=== PATIENT | male | born 1960 | race Caucasian/White ===

== ENCOUNTER 2018-09-06 13:47 | Emergency (ER) | payer MEDICAID ==
[~2018-09-06] VITALS: Ht 175.3 cm; Wt 65.9 kg
[2018-09-06] MEDS ORDERED: TETanus/Pertussis (Acell)/Diphther VAC/PF (Tdap-Adult) 0.5ml syringe IM ONE (14:10)
[2018-09-06] MEDS ORDERED: LIDOcaine 1.5% w/epinephrine 1:200,000 5ml ampul IJ ONE (14:10)
[2018-09-06] MEDS ORDERED: LIDOcaine 1% w/epiNEPHrine 1:200,000 30ml vial IJ ONE (14:15)
[2018-09-06] MEDS ORDERED: AMOX-422 PO (15:02)
[2018-09-06] MEDS ORDERED: amox tr/potassium clavulanate 875/125mg TAB PO ONE (15:05)
[2018-09-06 15:22] VITALS: BP 111/66
== END 2018-09-06 15:25 | disposition home or self-care (01) ==
LOC: ER 13:48
DX: S02.2XXA Fracture of nasal bones, initial encounter for closed fracture (principal); S01.21XA Laceration without foreign body of nose, initial encounter; S09.90XA Unspecified injury of head, initial encounter; I10 Essential (primary) hypertension; J45.909 Unspecified asthma, uncomplicated; E11.9 Type 2 diabetes mellitus without complications; Z59.0 Homelessness; W22.8XXA Striking against or struck by other objects, initial encounter; Y93.89 Activity, other specified; Y92.89 Other specified places as the place of occurrence of the external cause; Y99.9 Unspecified external cause status
CPT/HCPCS: 12011; 70450; 90715; 99284; J3490

== ENCOUNTER 2019-05-22 07:03 | Inpatient (IN) | payer MEDICAID ==
[2019-05-22] VITALS (17 sets, daily range): BP systolic 95–131; BP diastolic 59–84
[~2019-05-22] VITALS: Ht 175.3 cm; Wt 67.2 kg
--- NOTE | 2019-05-22 07:10 | NUR ---
DR ROD NOTIFIED OF [facility] PHYSICIAN CALL WITH RECENT HX AND LABS YESTERDAY, VERBAL ORDER FOR TYPE AND SCREEN RECEIVED, ORDERED LABS PER PROTOCOL
[2019-05-22 07:38] LABS: BASOPHILS # (AUTO) 0.1 X10'3 (0-0.2); BASOPHILS % (AUTO) 0.9 % (0-1); EOSINOPHILS # (AUTO) 0.1 X10'3 (0-0.9); EOSINOPHILS % (AUTO) 1.4 % (0-6); LYMPHOCYTES # (AUTO) 1.1 X10'3 (1.1-4.8); LYMPHOCYTES % (AUTO) 18.6 % (21-51); MEAN CORPUSCULAR HEMOGLOBIN 18.1 PG (27.0-31.0); MEAN CORPUSCULAR HGB CONC 30.2 g/dL (33.0-36.5); MEAN CORPUSCULAR VOLUME 59.9 FL (78-98); MEAN PLATELET VOLUME 8.3 FL (7.4-10.4); MONOCYTES # (AUTO) 0.5 X10'3 (0-0.9); MONOCYTES % (AUTO) 8.4 % (2-12); NEUTROPHILS # (AUTO) 4.3 X10'3 (1.8-7.7); NEUTROPHILS % (AUTO) 70.7 % (42-75); PLATELET COUNT 359 X10'3 (140-440); RED BLOOD COUNT 3.65 X10'6 (4.70-6.10); RED CELL DISTRIBUTION WIDTH 20.5 % (11.5-14.5); WHITE BLOOD COUNT 6.1 X10'3 (4.5-11.0)
[2019-05-22 07:42] LABS: HEMATOCRIT 21.8 % (42.0-52.0); HEMOGLOBIN 6.6 g/dl (14.0-17.9)
[2019-05-22 07:43] LABS: CLARITY,URINE SLIGHTLY CLOUDY (Clear); COLOR,URINE YELLOW (Yellow); GLUCOSE, URINE NEGATIVE (Neg); KETONES,URINE TRACE mg/dl (Neg); LEUKOCYTE ESTERASE ,URINE NEGATIVE (Neg); NITRITES, URINE NEGATIVE (Neg); OCCULT BLOOD,URINE NEGATIVE (Neg); PROTEIN,URINE 30 mg/dl (Neg); UA COLLECTION TYPE CLN CATCH MIDSTREAM
[2019-05-22 07:55] LABS: ALANINE AMINOTRANSFERASE 18 U/L (12-78); ALBUMIN 3.2 G/DL (3.4-5.0); ALBUMIN/GLOBULIN RATIO 0.7 (1.1-1.5); ALKALINE PHOSPHATASE 66 IU/L (46-116); ANION GAP 8 (8-16); ASPARTATE AMINO TRANSFERASE 17 U/L (10-37); BILIRUBIN,TOTAL 0.6 MG/DL (0.1-1.0); BLOOD UREA NITROGEN 18 MG/DL (7-18); BUN/CREATININE RATIO 17.3 (5.4-32.0); CALCIUM 8.4 MG/DL (8.5-10.1); CHLORIDE 101 MMOL/L (99-107); CREATININE 1.04 MG/DL (0.60-1.10); GLUCOSE 94 MG/DL (70-104); LIPASE 131 U/L (73-393); SODIUM 140 MMOL/L (135-145); TOTAL CARBON DIOXIDE 31.1 MMOL/L (24-32); TOTAL PROTEIN 7.5 G/DL (6.4-8.2); eGFR 74 ML/MIN
[2019-05-22 07:56] LABS: POTASSIUM 2.3 MMOL/L (3.5-5.1)
[2019-05-22 07:57] LABS: BACTERIA,URINE NONE SEEN /HPF (Neg); HYALINE CASTS 0-3 /LPF (NEGATIVE); MUCUS STRANDS MANY /LPF (Neg); RBC,URINE 0-2 /HPF (0-2); SQUAMOUS EPITHELIAL CELL,UR MODERATE /LPF (FEW)
[2019-05-22] MEDS ORDERED: potassium Cl 10 mEq/100mL bag IV ONE (08:00)
--- NOTE | 2019-05-22 08:23 | NUR ---
blood consent signed by Dr. Emmanuel and patient,[place] [place]who will call when blood is ready.
[2019-05-22] MEDS ORDERED: potassium Cl 10 mEq/100mL bag IV SCH (08:30)
[2019-05-22] MEDS: potassium Cl 10 mEq/100mL bag IV SCH ×4 (08:36→12:13)
[2019-05-22 08:48] LABS: ANISOCYTOSIS 3+; ELLIPTOCYTES FEW; HYPOCHROMASIA 3+; MICROCYTOSIS 3+; PLATELET ESTIMATE NORMAL; POLYCHROMASIA 1+; STOMATOCYTES 1+; TEAR DROP CELLS FEW
[2019-05-22] MEDS ORDERED: iohexol 300mg/ml 100ml inj. ONE (09:51)
[2019-05-22] MEDS ORDERED: mag hydrox/Alum hydrox/simeth 30ml oral suspension PO PRN (11:30)
[2019-05-22] MEDS ORDERED: ondansetron/PF 4mg/2ml inj IV PRN (11:30)
[2019-05-22] MEDS ORDERED: potassium Cl 20 mEq SR tablet PO PRN ×2 (11:30)
[2019-05-22] MEDS ORDERED: magnesium 4gm in 100ml NS 100 ML IV PRN (11:30)
[2019-05-22] MEDS ORDERED: potassium CL 10mEq/100ml bag 100 ML IV PRN (11:30)
[2019-05-22] MEDS ORDERED: magnesium Cl slow-release 64mg tablet PO PRN (11:30)
[2019-05-22] MEDS ORDERED: magnesium hydroxide 30ml (MOM) UD suspension PO PRN (11:30)
[2019-05-22] MEDS ORDERED: magnesium 2GM in 50ml NS 50 ML IV PRN (11:30)
[2019-05-22] MEDS ORDERED: acetaminophen 325mg tablet PO PRN ×2 (11:30)
[2019-05-22] MEDS ORDERED: ESOMEPRAZOLE 40 MG VIAL IV SCH (11:40)
[2019-05-22] MEDS ORDERED: NO HOME MEDS (12:02)
--- NOTE | 2019-05-22 12:28 | NUR ---
Received report from PATY Terrazas. Awaiting patient arrival to room 355a.
[2019-05-22 12:53] LABS: MAGNESIUM 2.3 MG/DL (1.5-2.4)
--- NOTE | 2019-05-22 12:54 | NUR ---
Received patient to room 355a. Patient is alert and oriented and in no apparent distress. Patient denies any pain or discomfort. Patient had just completed blood transfusion during transport per transferring RN. VSS. Patient oriented to room and call light. Call light within reach, bed is low and locked.
[2019-05-22 13:16] LABS: OCCULT BLOOD STOOL POSITIVE (Neg)
--- NOTE | 2019-05-22 13:21 | NUR ---
Malnutrition consult: Per H&P pt reports persistent vomiting with no nausea that is exacerbated with PO intake. Pt also reports low PO intake r/t not being able to eat or swallow things. No ST consult at this time d/t pt NPO for EGD. Per H&P pt with stomach mass however PMH documents it as an esophageal mass. Patient's current wt is stable with documented weight in September 2018. Per H&P pt with no edema. Pending physical assessment. Currently not enough information to fully assess for malnutrition at this time. Will f/u tomorrow. Addendum: 05/22/19 at [address] Amended: Links added.
[2019-05-22] MEDS: magnesium 2GM in 50ml NS 50 ML IV SCH ×2 (13:28→16:00)
[2019-05-22] MEDS: potassium CL 20mEq in D5-1/2NS 1,000 ML IV SCH ×2 (13:28→21:28)
--- NOTE | 2019-05-22 13:53 | NUR ---
patient down to GI lab.
[2019-05-22] MEDS ORDERED: fentaNYL/PF 50MCG/1 ML 2ML syringe ONE (14:39)
[2019-05-22] MEDS ORDERED: LIDOcaine Viscous 15ml cup ONE (14:40)
[2019-05-22] MEDS ORDERED: MIDAZolam 5mg/5ml vial ONE (14:40)
--- NOTE | 2019-05-22 15:56 | NUR ---
patient returned to room 355a.
[2019-05-22] MEDS ORDERED: ESOMEPRAZOLE 40 MG VIAL IV ONE (16:05)
--- NOTE | 2019-05-22 16:36 | NUR ---
angioseal to right groin cdi. groin soft, no hematoma noted. educated patient importance of lying flat on back for x6 hours and not lifting head more than 10 degrees. Addendum: 05/22/19 at 1824 by Imelda Bullock RN WRONG PATIENT CHART.
[2019-05-22] MEDS ORDERED: fluconazole-Diflucan 100MG/NS 50 ML IV SCH (17:00)
[2019-05-22] MEDS: fluconazole-Diflucan 100MG/NS 50 ML IV SCH (17:29)
--- NOTE | 2019-05-22 18:24 | NUR ---
Problems reprioritized. Patient report given, questions answered & plan of care reviewed with PATY VALENCIA.
--- NOTE | 2019-05-22 18:50 | NUR ---
Patient in room JOHN 355. I have received report from Imelda NEWMAN and had the opportunity to ask questions and assume patient care. Patient finishing clears dinner, will continue to monitor.
--- NOTE | 2019-05-22 18:55 | NUR ---
Problems reprioritized. Patient report given, questions answered & plan of care reviewed with PATY PUTNAM.
[2019-05-23] VITALS (13 sets, daily range): BP systolic 96–114; BP diastolic 61–72
[2019-05-23] MEDS ORDERED: temazepam 15mg capsule PO ONE (02:30)
[2019-05-23] MEDS: potassium CL 20mEq in D5-1/2NS 1,000 ML IV SCH ×3 (02:31→23:48)
[2019-05-23] MEDS ORDERED: morphine 2 MG/ML inj. syringe IV PRN (04:45)
[2019-05-23 06:05] LABS: BASOPHILS # (AUTO) 0.1 X10'3 (0-0.2); BASOPHILS % (AUTO) 1.4 % (0-1); EOSINOPHILS # (AUTO) 0.2 X10'3 (0-0.9); EOSINOPHILS % (AUTO) 2.9 % (0-6); LYMPHOCYTES % (AUTO) 18.3 % (21-51); MEAN CORPUSCULAR HEMOGLOBIN 18.9 PG (27.0-31.0); MEAN CORPUSCULAR HGB CONC 29.9 g/dL (33.0-36.5); MEAN CORPUSCULAR VOLUME 63.3 FL (78-98); MEAN PLATELET VOLUME 8.3 FL (7.4-10.4); MONOCYTES # (AUTO) 0.5 X10'3 (0-0.9); NEUTROPHILS # (AUTO) 3.6 X10'3 (1.8-7.7); NEUTROPHILS % (AUTO) 68.4 % (42-75); PLATELET COUNT 264 X10'3 (140-440); RED BLOOD COUNT 3.26 X10'6 (4.70-6.10); RED CELL DISTRIBUTION WIDTH 22.9 % (11.5-14.5); WHITE BLOOD COUNT 5.3 X10'3 (4.5-11.0)
[2019-05-23 06:17] LABS: ALBUMIN 2.5 G/DL (3.4-5.0); ANION GAP 6 (8-16); BLOOD UREA NITROGEN 10 MG/DL (7-18); BUN/CREATININE RATIO 13.5 (5.4-32.0); CALCIUM 7.7 MG/DL (8.5-10.1); CHLORIDE 106 MMOL/L (99-107); CREATININE 0.74 MG/DL (0.60-1.10); GLUCOSE 92 MG/DL (70-104); MAGNESIUM 2.3 MG/DL (1.5-2.4); SODIUM 138 MMOL/L (135-145); TOTAL CARBON DIOXIDE 25.7 MMOL/L (24-32); eGFR > 90 ML/MIN
[2019-05-23 06:23] LABS: HEMATOCRIT 20.7 % (42.0-52.0); HEMOGLOBIN 6.2 g/dl (14.0-17.9)
[2019-05-23 06:25] LABS: POTASSIUM 2.8 MMOL/L (3.5-5.1)
[2019-05-23] MEDS ORDERED: POTASSIUM BICARB 20meq eff tab 20 MEQ TABLET.EFF PO PRN ×2 (06:43→06:44)
[2019-05-23] MEDS: fluconazole-Diflucan 100MG/NS 50 ML IV SCH (06:57)
[2019-05-23] MEDS: ESOMEPRAZOLE 40 MG VIAL IV SCH (07:00)
--- NOTE | 2019-05-23 07:03 | NUR ---
Problems reprioritized. Patient report given, questions answered & plan of care reviewed with Kirstin NEWMAN.
[2019-05-23 07:13] LABS: ANISOCYTOSIS 3+; HYPOCHROMASIA 2+; MICROCYTOSIS 2+; PLATELET ESTIMATE NORMAL
[2019-05-23 07:14] LABS: POIKILOCYTOSIS FEW; POLYCHROMASIA 1+; TARGET CELLS FEW; TEAR DROP CELLS FEW
[2019-05-23] MEDS: potassium CL 10mEq/100ml bag 100 ML IV PRN ×7 (08:05→18:08)
[2019-05-23] MEDS: K and/or MAG REPLACEMENT MC SCH (08:12)
--- NOTE | 2019-05-23 12:39 | NUR ---
F/u for malnutrition consult: Pt s/p EGD with with findings of distal esophageal stricture with ulceration with biopsies taken from mass, esophageal foreign body which could have been impairing ability to swallow which was endoscopically removed, and white exudate of the distal esophagus consistent with Soraya. EGD reports indicate suboptimal exam with failure to inspect the stomach and duodenum. Patient previously on clear liquid diet with 50-75% PO intake however diet was just advanced to full liquid, pending PO intake. Pt currently lacks a minimum of two criteria for malnutrition with stable wt, appropriate BMI, no edema or significant decrease in muscle strength. Will continue to follow and monitor need for ONS. Addendum: 05/23/19 at [address] Amended: Links added.
[2019-05-23] MEDS ORDERED: iohexol 300mg/ml 100ml inj. ONE (14:52)
--- NOTE | 2019-05-23 16:03 | NUR ---
Per RN over the phone MD requesting calorie count on patient. RD states pt is swallowing better s/p EGD however requires drinking slowly. Calorie count papers received for lunch today indicate pt with 220 kcal intake x 1 meal. Noted that Ensure Enlive has been ordered TID. Will f/u tomorrow for additional calorie count information. Recommendations: 1) Advance to regular diet as medically indicated 2) Ensure Enlive TID 3) Wt per rx Addendum: 05/23/19 at [address] Amended: Links added.
--- NOTE | 2019-05-23 16:07 | NUR ---
RN's : Fax calorie count down to dietitian at [phone] after each meal. They will count calories and put in in a daily dietitian note.
[2019-05-23 17:35] LABS: HEMATOCRIT 25.5 % (42.0-52.0); MEAN CORPUSCULAR HEMOGLOBIN 21.1 PG (27.0-31.0); MEAN CORPUSCULAR HGB CONC 31.3 g/dL (33.0-36.5); MEAN CORPUSCULAR VOLUME 67.5 FL (78-98); MEAN PLATELET VOLUME 8.4 FL (7.4-10.4); PLATELET COUNT 241 X10'3 (140-440); RED BLOOD COUNT 3.78 X10'6 (4.70-6.10); RED CELL DISTRIBUTION WIDTH 26.7 % (11.5-14.5); WHITE BLOOD COUNT 5.7 X10'3 (4.5-11.0)
[2019-05-23] MEDS: lactose-reduced food (Ensure Enlive) - 237ml bottle PO SCH (18:24)
--- NOTE | 2019-05-23 18:30 | NUR ---
Patient in room JOHN 355. I have received report from Kirstin NEWMAN and had the opportunity to ask questions and assume patient care. Patient working on dinner, states understanding that he will take his time with eating. Will continue to monitor.
--- NOTE | 2019-05-23 18:38 | NUR ---
Problems reprioritized. Patient report given, questions answered & plan of care reviewed with Khalida NEWMAN.
[2019-05-23] MEDS: temazepam 15mg capsule PO PRN (22:49)
[2019-05-24] VITALS: BP 105/70
[2019-05-24 01:53] LABS: BASOPHILS % (AUTO) 0.6 % (0-1); EOSINOPHILS # (AUTO) 0.3 X10'3 (0-0.9); EOSINOPHILS % (AUTO) 4.6 % (0-6); HEMATOCRIT 24.4 % (42.0-52.0); HEMOGLOBIN 7.6 g/dl (14.0-17.9); LYMPHOCYTES % (AUTO) 18.1 % (21-51); MEAN CORPUSCULAR HEMOGLOBIN 20.9 PG (27.0-31.0); MEAN CORPUSCULAR VOLUME 67.5 FL (78-98); MEAN PLATELET VOLUME 8.6 FL (7.4-10.4); MONOCYTES # (AUTO) 0.5 X10'3 (0-0.9); MONOCYTES % (AUTO) 8.4 % (2-12); NEUTROPHILS # (AUTO) 3.8 X10'3 (1.8-7.7); NEUTROPHILS % (AUTO) 68.3 % (42-75); PLATELET COUNT 229 X10'3 (140-440); RED BLOOD COUNT 3.62 X10'6 (4.70-6.10); WHITE BLOOD COUNT 5.5 X10'3 (4.5-11.0)
[2019-05-24 02:02] LABS: ALBUMIN 2.2 G/DL (3.4-5.0); ANION GAP 6 (8-16); BLOOD UREA NITROGEN 4 MG/DL (7-18); CALCIUM 7.7 MG/DL (8.5-10.1); CHLORIDE 108 MMOL/L (99-107); CREATININE 0.67 MG/DL (0.60-1.10); GLUCOSE 94 MG/DL (70-104); MAGNESIUM 1.9 MG/DL (1.5-2.4); SODIUM 140 MMOL/L (135-145); TOTAL CARBON DIOXIDE 25.6 MMOL/L (24-32); eGFR > 90 ML/MIN
--- NOTE | 2019-05-24 06:20 | NUR ---
Patient in room JOHN 355. I have received report from Khalida NEWMAN and had the opportunity to ask questions and assume patient care.
--- NOTE | 2019-05-24 06:53 | NUR ---
Problems reprioritized. Patient report given, questions answered & plan of care reviewed with Brooke NEWMAN. Patient resting eyes closed respirations even.
[2019-05-24 07:05] VITALS: BP 107/76
[2019-05-24] MEDS: K and/or MAG REPLACEMENT MC SCH (08:00)
[2019-05-24] MEDS: fluconazole-Diflucan 100MG/NS 50 ML IV SCH (08:21)
[2019-05-24] MEDS: ESOMEPRAZOLE 40 MG VIAL IV SCH (08:22)
[2019-05-24] MEDS: lactose-reduced food (Ensure Enlive) - 237ml bottle PO SCH ×3 (08:22→18:17)
[2019-05-24] MEDS: potassium CL 20mEq in D5-1/2NS 1,000 ML IV SCH (08:30)
[2019-05-24 09:40] LABS: HEMATOCRIT 27.5 % (42.0-52.0); HEMOGLOBIN 8.3 g/dl (14.0-17.9); MEAN CORPUSCULAR HEMOGLOBIN 20.9 PG (27.0-31.0); MEAN CORPUSCULAR HGB CONC 30.3 g/dL (33.0-36.5); MEAN PLATELET VOLUME 8.9 FL (7.4-10.4); PLATELET COUNT 262 X10'3 (140-440); RED BLOOD COUNT 3.99 X10'6 (4.70-6.10); RED CELL DISTRIBUTION WIDTH 26.5 % (11.5-14.5); WHITE BLOOD COUNT 7.2 X10'3 (4.5-11.0)
[2019-05-24 11:13] VITALS: BP 100/67
--- NOTE | 2019-05-24 15:04 | NUR ---
F/u: Calorie Count day 1 05/23 lunch and dinner 05/24 breakfast. Pt PO 919kcals and 33g protein mainly drinking ensure enlives TID on full liquid diet not meeting needs. 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 LBM 05/21. Will continue to monitor. Per RN over the phone MD requesting calorie count on patient. RD states pt is swallowing better s/p EGD however requires drinking slowly. Calorie count papers received for lunch today indicate pt with 220 kcal intake x 1 meal. Noted that Ensure Enlive has been ordered TID. Will f/u tomorrow for additional calorie count information. Recommendations: 1) Advance to regular diet as medically indicated per CORN CROP SUPERVISOR/MD 2) Ensure Enlive TID 3) Wt per rx Addendum: 05/24/19 at [address] Amended: Links added.
[2019-05-24 18:00] VITALS: BP 120/82
--- NOTE | 2019-05-24 18:44 | NUR ---
Problems reprioritized. Patient report given, questions answered & plan of care reviewed with Gissell NEWMAN.
[2019-05-24 22:12] LABS: HEMOGLOBIN 7.9 g/dl (14.0-17.9); MEAN CORPUSCULAR HEMOGLOBIN 20.9 PG (27.0-31.0); MEAN CORPUSCULAR HGB CONC 30.3 g/dL (33.0-36.5); MEAN CORPUSCULAR VOLUME 68.9 FL (78-98); MEAN PLATELET VOLUME 8.8 FL (7.4-10.4); PLATELET COUNT 251 X10'3 (140-440); RED BLOOD COUNT 3.77 X10'6 (4.70-6.10); RED CELL DISTRIBUTION WIDTH 27.6 % (11.5-14.5); WHITE BLOOD COUNT 6.7 X10'3 (4.5-11.0)
[2019-05-24] MEDS: temazepam 15mg capsule PO PRN (23:24)
[2019-05-25] VITALS: BP 117/69
[2019-05-25 05:25] LABS: BASOPHILS # (AUTO) 0.1 X10'3 (0-0.2); BASOPHILS % (AUTO) 1.1 % (0-1); EOSINOPHILS # (AUTO) 0.2 X10'3 (0-0.9); EOSINOPHILS % (AUTO) 3.5 % (0-6); HEMATOCRIT 25.4 % (42.0-52.0); HEMOGLOBIN 7.8 g/dl (14.0-17.9); LYMPHOCYTES # (AUTO) 1.3 X10'3 (1.1-4.8); LYMPHOCYTES % (AUTO) 23.1 % (21-51); MEAN CORPUSCULAR HEMOGLOBIN 21.1 PG (27.0-31.0); MEAN CORPUSCULAR HGB CONC 30.6 g/dL (33.0-36.5); MEAN PLATELET VOLUME 8.9 FL (7.4-10.4); MONOCYTES # (AUTO) 0.6 X10'3 (0-0.9); NEUTROPHILS # (AUTO) 3.5 X10'3 (1.8-7.7); NEUTROPHILS % (AUTO) 61.3 % (42-75); PLATELET COUNT 255 X10'3 (140-440); RED BLOOD COUNT 3.69 X10'6 (4.70-6.10); RED CELL DISTRIBUTION WIDTH 27.3 % (11.5-14.5); WHITE BLOOD COUNT 5.7 X10'3 (4.5-11.0)
[2019-05-25 05:46] LABS: ALBUMIN 2.2 G/DL (3.4-5.0); ANION GAP 7 (8-16); BLOOD UREA NITROGEN 4 MG/DL (7-18); BUN/CREATININE RATIO 6.1 (5.4-32.0); CALCIUM 8.1 MG/DL (8.5-10.1); CHLORIDE 110 MMOL/L (99-107); CREATININE 0.66 MG/DL (0.60-1.10); GLUCOSE 87 MG/DL (70-104); MAGNESIUM 1.9 MG/DL (1.5-2.4); POTASSIUM 3.9 MMOL/L (3.5-5.1); SODIUM 141 MMOL/L (135-145); eGFR > 90 ML/MIN
--- NOTE | 2019-05-25 06:00 | NUR ---
Patient in room JOHN 355. I have received report from Gissell NEWMAN and had the opportunity to ask questions and assume patient care.
--- NOTE | 2019-05-25 06:05 | NUR ---
Problems reprioritized. Patient report given, questions answered & plan of care reviewed with PATY Cox.
[2019-05-25 07:16] LABS: LARGE PLATELETS FEW; PLATELET ESTIMATE NORMAL
[2019-05-25 07:17] LABS: ANISOCYTOSIS 3+; HYPOCHROMASIA 1+; MICROCYTOSIS 2+; POIKILOCYTOSIS FEW; POLYCHROMASIA 1+
[2019-05-25 07:29] VITALS: BP 114/67
[2019-05-25] MEDS: K and/or MAG REPLACEMENT MC SCH (08:00)
[2019-05-25] MEDS: fluconazole-Diflucan 100MG/NS 50 ML IV SCH (08:20)
[2019-05-25] MEDS: lactose-reduced food (Ensure Enlive) - 237ml bottle PO SCH ×3 (08:21→18:00)
[2019-05-25] MEDS: ESOMEPRAZOLE 40 MG VIAL IV SCH (09:04)
[2019-05-25 11:47] VITALS: BP 100/65
--- NOTE | 2019-05-25 14:42 | NUR ---
Calorie Count: Day 2; Missing pt lunch report 05/24 and will summarize using breakfast and dinner 05/24 w/ breakfast 05/25. In total pt consumed 1291 kcals and 51g protein past 24 hours meeting 77% estimated kcal and 94% estimated protein needs. LBM 05/24 first documented following 4 days constipation. Pt MCV 70 w/ no thyroid hx; RD d/w RN for Fe panel per MD approval given may need supplementation. CLAY PUDDLER recs continue full liquid diet given regurgitation from stricture. Will continue to monitor. Addendum: 05/25/19 at [address] Amended: Links added.
[2019-05-25 16:27] LABS: HEMATOCRIT 25.7 % (42.0-52.0); HEMOGLOBIN 8.1 g/dl (14.0-17.9); MEAN CORPUSCULAR HEMOGLOBIN 21.7 PG (27.0-31.0); MEAN CORPUSCULAR HGB CONC 31.5 g/dL (33.0-36.5); MEAN CORPUSCULAR VOLUME 68.8 FL (78-98); PLATELET COUNT 277 X10'3 (140-440); RED BLOOD COUNT 3.73 X10'6 (4.70-6.10); RED CELL DISTRIBUTION WIDTH 27.9 % (11.5-14.5); WHITE BLOOD COUNT 5.5 X10'3 (4.5-11.0)
--- NOTE | 2019-05-25 18:36 | NUR ---
Problems reprioritized. Patient report given, questions answered & plan of care reviewed with Patti NEWMAN.
--- NOTE | 2019-05-25 18:40 | NUR ---
Patient in room JOHN 355. I have received report from MAXWELL NEWMAN and had the opportunity to ask questions and assume patient care.
[2019-05-25 20:00] VITALS: BP 159/87
[2019-05-25] MEDS: temazepam 15mg capsule PO PRN (22:19)
[2019-05-26] VITALS: BP 115/79
[2019-05-26 05:29] LABS: BASOPHILS % (AUTO) 0.8 % (0-1); EOSINOPHILS # (AUTO) 0.2 X10'3 (0-0.9); EOSINOPHILS % (AUTO) 4.2 % (0-6); HEMATOCRIT 26.6 % (42.0-52.0); HEMOGLOBIN 8.3 g/dl (14.0-17.9); LYMPHOCYTES # (AUTO) 1.1 X10'3 (1.1-4.8); LYMPHOCYTES % (AUTO) 18.9 % (21-51); MEAN CORPUSCULAR HEMOGLOBIN 21.1 PG (27.0-31.0); MEAN CORPUSCULAR HGB CONC 31.1 g/dL (33.0-36.5); MEAN PLATELET VOLUME 8.7 FL (7.4-10.4); MONOCYTES # (AUTO) 0.6 X10'3 (0-0.9); MONOCYTES % (AUTO) 10.5 % (2-12); NEUTROPHILS # (AUTO) 3.7 X10'3 (1.8-7.7); NEUTROPHILS % (AUTO) 65.6 % (42-75); PLATELET COUNT 281 X10'3 (140-440); RED BLOOD COUNT 3.92 X10'6 (4.70-6.10); RED CELL DISTRIBUTION WIDTH 28.3 % (11.5-14.5); WHITE BLOOD COUNT 5.7 X10'3 (4.5-11.0)
[2019-05-26 05:40] LABS: ALBUMIN 2.4 G/DL (3.4-5.0); ANION GAP 9 (8-16); CALCIUM 8.3 MG/DL (8.5-10.1); CHLORIDE 108 MMOL/L (99-107); GLUCOSE 85 MG/DL (70-104); POTASSIUM 3.9 MMOL/L (3.5-5.1); SODIUM 141 MMOL/L (135-145); TOTAL CARBON DIOXIDE 24.4 MMOL/L (24-32); eGFR > 90 ML/MIN
[2019-05-26 05:56] LABS: BLOOD UREA NITROGEN 7 MG/DL (7-18)
[2019-05-26 06:03] LABS: ANISOCYTOSIS 3+; MICROCYTOSIS 2+; PLATELET ESTIMATE NORMAL
[2019-05-26 06:04] LABS: HYPOCHROMASIA 1+; POLYCHROMASIA 1+
[2019-05-26 06:05] LABS: ELLIPTOCYTES FEW; TEAR DROP CELLS FEW
--- NOTE | 2019-05-26 06:30 | NUR ---
Problems reprioritized. Patient report given, questions answered & plan of care reviewed with MARJORIE NEWMAN AND SAVANNA NEWMAN.
--- NOTE | 2019-05-26 06:58 | NUR ---
Patient in room [facility] 355. I have received report from MURDOCK RN and had the opportunity to ask questions and assume patient care.
[2019-05-26 08:00] VITALS: BP 104/73
[2019-05-26] MEDS: K and/or MAG REPLACEMENT MC SCH (08:00)
[2019-05-26] MEDS: lactose-reduced food (Ensure Enlive) - 237ml bottle PO SCH ×3 (08:00→19:40)
[2019-05-26] MEDS: fluconazole-Diflucan 100MG/NS 50 ML IV SCH (08:55)
[2019-05-26] MEDS: ESOMEPRAZOLE 40 MG VIAL IV SCH (08:55)
--- NOTE | 2019-05-26 09:32 | NUR ---
Called [facility] at [phone] no results at this time
[2019-05-26 12:12] VITALS: BP 108/69
--- NOTE | 2019-05-26 14:15 | NUR ---
Calorie count day 3: Calculated intake using lunch and dinner 05/25 and breakfast 05/26. In total pt consumed 727 kcal and 23.7 g protein meeting 43% estimated energy needs and 44% estimated protein needs. Per RN pt requested ONS change from TID to BID with breakfast and dinner, d/w dietary. Calorie count to end at lunch today, RN informed of this and let her know that we can continue the calorie count if MD would like, we would just need a consult indicating the desire to continue the calorie count. Will continue to follow. Addendum: 05/26/19 at [address] Amended: Links added.
[2019-05-26 16:14] LABS: HEMATOCRIT 31.5 % (42.0-52.0); HEMOGLOBIN 9.7 g/dl (14.0-17.9); MEAN CORPUSCULAR HGB CONC 30.8 g/dL (33.0-36.5); MEAN CORPUSCULAR VOLUME 68.3 FL (78-98); MEAN PLATELET VOLUME 8.2 FL (7.4-10.4); PLATELET COUNT 385 X10'3 (140-440); RED BLOOD COUNT 4.61 X10'6 (4.70-6.10); WHITE BLOOD COUNT 10.3 X10'3 (4.5-11.0)
[2019-05-26 18:00] VITALS: BP 108/66
--- NOTE | 2019-05-26 18:37 | NUR ---
Problems reprioritized. Patient report given, questions answered & plan of care reviewed with MURDOCK RN.
--- NOTE | 2019-05-26 18:40 | NUR ---
Patient in room [facility] 355. I have received report from MARJORIE NEWMAN AND SAVANNA NEWMAN and had the opportunity to ask questions and assume patient care.
[2019-05-26] MEDS: temazepam 15mg capsule PO PRN (22:26)
[2019-05-27] VITALS: BP 123/76
[2019-05-27 05:23] LABS: BASOPHILS # (AUTO) 0.1 X10'3 (0-0.2); BASOPHILS % (AUTO) 0.8 % (0-1); EOSINOPHILS # (AUTO) 0.2 X10'3 (0-0.9); EOSINOPHILS % (AUTO) 2.8 % (0-6); HEMATOCRIT 26.5 % (42.0-52.0); HEMOGLOBIN 8.3 g/dl (14.0-17.9); LYMPHOCYTES # (AUTO) 1.4 X10'3 (1.1-4.8); MEAN CORPUSCULAR HEMOGLOBIN 21.4 PG (27.0-31.0); MEAN CORPUSCULAR HGB CONC 31.5 g/dL (33.0-36.5); MEAN CORPUSCULAR VOLUME 68.1 FL (78-98); MEAN PLATELET VOLUME 8.7 FL (7.4-10.4); MONOCYTES # (AUTO) 0.8 X10'3 (0-0.9); MONOCYTES % (AUTO) 10.8 % (2-12); NEUTROPHILS # (AUTO) 4.6 X10'3 (1.8-7.7); NEUTROPHILS % (AUTO) 65.6 % (42-75); PLATELET COUNT 294 X10'3 (140-440); RED BLOOD COUNT 3.88 X10'6 (4.70-6.10); RED CELL DISTRIBUTION WIDTH 29.4 % (11.5-14.5)
[2019-05-27 05:34] LABS: ALBUMIN 2.4 G/DL (3.4-5.0); ANION GAP 8 (8-16); BLOOD UREA NITROGEN 10 MG/DL (7-18); BUN/CREATININE RATIO 14.5 (5.4-32.0); CALCIUM 8.6 MG/DL (8.5-10.1); CHLORIDE 106 MMOL/L (99-107); CREATININE 0.69 MG/DL (0.60-1.10); GLUCOSE 86 MG/DL (70-104); POTASSIUM 4.4 MMOL/L (3.5-5.1); SODIUM 137 MMOL/L (135-145); TOTAL CARBON DIOXIDE 23.2 MMOL/L (24-32); eGFR > 90 ML/MIN
[2019-05-27 06:11] LABS: ANISOCYTOSIS 3+; LARGE PLATELETS FEW; MICROCYTOSIS 2+; PLATELET ESTIMATE NORMAL
[2019-05-27 06:12] LABS: HYPOCHROMASIA 2+
--- NOTE | 2019-05-27 06:30 | NUR ---
Problems reprioritized. Patient report given, questions answered & plan of care reviewed with BRITTANY NEWMAN.
--- NOTE | 2019-05-27 07:00 | NUR ---
Patient in room [facility] 355. I have received report from LINDA MCKEON RN and had the opportunity to ask questions and assume patient care.
[2019-05-27 08:00] VITALS: BP 110/69
[2019-05-27] MEDS: K and/or MAG REPLACEMENT MC SCH (08:00)
[2019-05-27] MEDS: fluconazole-Diflucan 100MG/NS 50 ML IV SCH (08:30)
[2019-05-27] MEDS: ESOMEPRAZOLE 40 MG VIAL IV SCH ×2 (08:30→19:53)
[2019-05-27] MEDS: lactose-reduced food (Ensure Enlive) - 237ml bottle PO SCH ×3 (08:37→14:40)
[2019-05-27 11:20] VITALS: BP 103/68
--- NOTE | 2019-05-27 12:12 | NUR ---
F/u: Pt PO 75-100% full liquids but takes 3-4 hours to eat per RN. AI d/w RN regarding potential for PEG in order to meet nutrition needs. Per RN; MD is aware and pt to d/c tomorrow likely to f/u as outpatient. Addendum: 05/27/19 at [address] Amended: Links added.
[2019-05-27 15:57] LABS: HEMATOCRIT 27.7 % (42.0-52.0); HEMOGLOBIN 8.6 g/dl (14.0-17.9); MEAN CORPUSCULAR HEMOGLOBIN 21.5 PG (27.0-31.0); MEAN CORPUSCULAR HGB CONC 31.2 g/dL (33.0-36.5); MEAN CORPUSCULAR VOLUME 68.8 FL (78-98); MEAN PLATELET VOLUME 8.4 FL (7.4-10.4); PLATELET COUNT 322 X10'3 (140-440); RED BLOOD COUNT 4.02 X10'6 (4.70-6.10); RED CELL DISTRIBUTION WIDTH 29.6 % (11.5-14.5); WHITE BLOOD COUNT 7.1 X10'3 (4.5-11.0)
[2019-05-27 18:00] VITALS: BP 110/71
--- NOTE | 2019-05-27 18:46 | NUR ---
Patient in room [facility] 355. I have received report from PATY Lott and had the opportunity to ask questions and assume patient care.
--- NOTE | 2019-05-27 18:47 | NUR ---
Problems reprioritized. Patient report given, questions answered & plan of care reviewed with KEVIN NEWMAN.
[2019-05-27] MEDS: temazepam 15mg capsule PO PRN (23:28)
[2019-05-28] VITALS: BP 116/81
[2019-05-28 06:11] LABS: HEMATOCRIT 27.3 % (42.0-52.0); HEMOGLOBIN 8.6 g/dl (14.0-17.9); MEAN CORPUSCULAR HEMOGLOBIN 21.6 PG (27.0-31.0); MEAN CORPUSCULAR HGB CONC 31.6 g/dL (33.0-36.5); MEAN CORPUSCULAR VOLUME 68.4 FL (78-98); MEAN PLATELET VOLUME 8.9 FL (7.4-10.4); PLATELET COUNT 319 X10'3 (140-440); RED BLOOD COUNT 3.99 X10'6 (4.70-6.10); RED CELL DISTRIBUTION WIDTH 29.7 % (11.5-14.5); WHITE BLOOD COUNT 5.9 X10'3 (4.5-11.0)
--- NOTE | 2019-05-28 06:53 | NUR ---
Problems reprioritized. Patient report given, questions answered & plan of care reviewed with PATY Bearedn.
[2019-05-28 07:05] VITALS: BP 113/65
[2019-05-28] MEDS: K and/or MAG REPLACEMENT MC SCH (07:43)
[2019-05-28] MEDS: ESOMEPRAZOLE 40 MG VIAL IV SCH (07:43)
[2019-05-28] MEDS: fluconazole-Diflucan 100MG/NS 50 ML IV SCH (07:43)
[2019-05-28] MEDS: lactose-reduced food (Ensure Enlive) - 237ml bottle PO SCH (07:52)
[2019-05-28] MEDS ORDERED: PANT-47 PO (09:12)
[2019-05-28] MEDS ORDERED: FLUC100T40 PO (09:12)
--- NOTE | 2019-05-28 10:24 | NUR ---
Patient discharged back to [place], stable and appropriate. IV removed, library monitor removed. All belongings taken from room. New prescriptions called into [facility] on [address] and [address].
== END 2019-05-28 10:30 | disposition home or self-care (01) | DRG 242 ==
LOC: ER 07:04 → SUR 3N 12:47 → CMPBEDREQ 05-25 21:12
PROVIDERS: ADMIT Hospitalist; ATTEND Internal Medicine
PROC: 0DB58ZX Excision of Esophagus, Via Natural or Artificial Opening Endoscopic, Diagnostic (ICD-10-PCS; principal; 2019-05-22)
PROC: 0DC58ZZ Extirpation of Matter from Esophagus, Via Natural or Artificial Opening Endoscopic (ICD-10-PCS; 2019-05-22)
PROC: 30233N1 Transfusion of Nonautologous Red Blood Cells into Peripheral Vein, Percutaneous Approach (ICD-10-PCS; 2019-05-22)
PROC: BW211ZZ Computerized Tomography (CT Scan) of Abdomen and Pelvis using Low Osmolar Contrast (ICD-10-PCS; 2019-05-22)
PROC: 30233N1 Transfusion of Nonautologous Red Blood Cells into Peripheral Vein, Percutaneous Approach (ICD-10-PCS; 2019-05-23)
PROC: BW241ZZ Computerized Tomography (CT Scan) of Chest and Abdomen using Low Osmolar Contrast (ICD-10-PCS; 2019-05-23)
DX: B37.81 Candidal esophagitis (principal); K22.2 Esophageal obstruction; T18.128A Food in esophagus causing other injury, initial encounter; D50.0 Iron deficiency anemia secondary to blood loss (chronic); E11.9 Type 2 diabetes mellitus without complications; K92.2 Gastrointestinal hemorrhage, unspecified; Z60.2 Problems related to living alone; X58.XXXA Exposure to other specified factors, initial encounter; E87.6 Hypokalemia; F12.90 Cannabis use, unspecified, uncomplicated; F10.10 Alcohol abuse, uncomplicated; R19.7 Diarrhea, unspecified; I10 Essential (primary) hypertension; J45.909 Unspecified asthma, uncomplicated; K31.9 Disease of stomach and duodenum, unspecified; Z59.0 Homelessness; Z87.891 Personal history of nicotine dependence; Y93.89 Activity, other specified; Y92.89 Other specified places as the place of occurrence of the external cause; Y99.8 Other external cause status
CPT/HCPCS: 36415; 36430; 43239; 43247; 71260; 74177; 80048; 80053; 81001; 82272; 83690; 83735; 84132; 85025; 85027; 85610; 86885; 86900; 86901; 86920; 87081; 87088; 92508; 92616; 96365; 96366; 99152; 99285; A4620; C1769; G0378; J1450; J2250; J2270; J2405; J3010; J3475; J3480; J7040; P9016; Q9967

== ENCOUNTER 2019-10-06 23:38 | Inpatient (IN) | payer MEDICAID ==
[~2019-10-06] VITALS: Ht 177.8 cm; Wt 39.5 kg
[~2019-10-06 23:38] MED LIST: FLUC100T40 PO; PANT-47 PO
[2019-10-07] MEDS ORDERED: normal saline 1000ML IV soln IVB ONE (00:25)
[2019-10-07 01:10] LABS: HEMOGLOBIN 8.3 g/dl (14.0-17.9); LYMPHOCYTES # (AUTO) 0.1 X10'3 (1.1-4.8); MONOCYTES # (AUTO) 0.8 X10'3 (0-0.9); NEUTROPHILS # (AUTO) 2.9 X10'3 (1.8-7.7); WHITE BLOOD COUNT 3.8 X10'3 (4.5-11.0)
[2019-10-07 01:11] LABS: BASOPHILS % (AUTO) 0.1 % (0-1); EOSINOPHILS % (AUTO) 0 % (0-6); HEMATOCRIT 23.6 % (42.0-52.0); LYMPHOCYTES % (AUTO) 1.6 % (21-51); MEAN CORPUSCULAR HEMOGLOBIN 32.8 PG (27.0-31.0); MEAN CORPUSCULAR HGB CONC 35.3 g/dL (33.0-36.5); MEAN CORPUSCULAR VOLUME 93.1 FL (78-98); MEAN PLATELET VOLUME 6.5 FL (7.4-10.4); MONOCYTES % (AUTO) 20.5 % (2-12); NEUTROPHILS % (AUTO) 77.8 % (42-75); PLATELET COUNT 349 X10'3 (140-440); RED BLOOD COUNT 2.54 X10'6 (4.70-6.10); RED CELL DISTRIBUTION WIDTH 24.3 % (11.5-14.5)
[2019-10-07 01:29] LABS: ALANINE AMINOTRANSFERASE 9 U/L (12-78); ALBUMIN 1.8 G/DL (3.4-5.0); ALBUMIN/GLOBULIN RATIO 0.4 (1.1-1.5); ALKALINE PHOSPHATASE 63 IU/L (46-116); ANION GAP 8 (8-16); ASPARTATE AMINO TRANSFERASE 11 U/L (10-37); BILIRUBIN,TOTAL 0.2 MG/DL (0.1-1.0); BLOOD UREA NITROGEN 17 MG/DL (7-18); BUN/CREATININE RATIO 35.4 (5.4-32.0); CALCIUM 8.4 MG/DL (8.5-10.1); CHLORIDE 93 MMOL/L (99-107); CREATININE 0.48 MG/DL (0.60-1.10); GLUCOSE 102 MG/DL (70-104); SODIUM 130 MMOL/L (135-145); TOTAL CARBON DIOXIDE 29.1 MMOL/L (24-32); TOTAL PROTEIN 5.9 G/DL (6.4-8.2); eGFR > 90 ML/MIN
[2019-10-07 01:30] LABS: POTASSIUM 2.8 MMOL/L (3.5-5.1)
[2019-10-07 01:41] LABS: TOTAL CELLS COUNTED 100
[2019-10-07 01:42] LABS: ANISOCYTOSIS 3+; PLATELET ESTIMATE NORMAL; POLYCHROMASIA FEW; TOXIC GRANULATION 3+
[2019-10-07 01:44] LABS: ETHANOL 0.344 GM/DL (0.0-0.010)
--- NOTE | 2019-10-07 01:49 | NUR ---
CT SCAN :No acute intracranial hemorrhage identified. No acute fracture or subluxation of the cervical spine. C-COLLAR REMOVED AT THIS TIME
[2019-10-07] MEDS ORDERED: CefTRIAXone 2gm/D5W 50ml 50 ML IV ONE (02:15)
[2019-10-07] MEDS ORDERED: azithromycin/NS 500mg/250ml 250 ML IV ONE (02:15)
[2019-10-07 02:18] LABS: CLARITY,URINE CLEAR (Clear); COLOR,URINE YELLOW (Yellow); GLUCOSE, URINE NEGATIVE (Neg); KETONES,URINE NEGATIVE (Neg); LEUKOCYTE ESTERASE ,URINE NEGATIVE (Neg); NITRITES, URINE NEGATIVE (Neg); OCCULT BLOOD,URINE NEGATIVE (Neg); PH,URINE 6.5 (4.8-8.0); PROTEIN,URINE NEGATIVE (Neg); UROBILINOGEN,URINE 0.2 E.U/dL (0.2-1.0)
[2019-10-07 02:22] LABS: UA COLLECTION TYPE STRAIGHT CATH
[2019-10-07 02:34] LABS: URINE AMPHETAMINE SCREEN NEGATIVE (Neg); URINE BARBITUATE SCREEN NEGATIVE (Neg); URINE BENZODIAZEPINES SCREEN NEGATIVE (Neg); URINE CANNABINOID SCREEN POSITIVE (Neg); URINE COCAINE SCREEN NEGATIVE (Neg); URINE METHADONE SCREEN NEGATIVE (Neg); URINE OPIATE SCREEN POSITIVE (Neg); URINE PHENCYCLIDINE SCREEN NEGATIVE (Neg)
[2019-10-07] MEDS ORDERED: normal saline 1000ML IV soln IV ONE (02:55)
[2019-10-07] MEDS ORDERED: VANCOMYCIN 1gm/H2O 200ml PB 200 ML IV ONE (03:20)
[2019-10-07] MEDS: potassium Cl 10 mEq/100mL bag IV SCH ×2 (03:52→05:09)
[2019-10-07] MEDS ORDERED: normal saline 1000ml 1,000 ML IV SCH (04:58)
[2019-10-07] MEDS ORDERED: haloperidol 5mg tablet PO PRN (05:00)
[2019-10-07] MEDS ORDERED: haloperidol lactate 5mg/ml inj IM PRN (05:00)
[2019-10-07] MEDS ORDERED: magnesium hydroxide 30ml (MOM) UD suspension PO PRN (05:00)
[2019-10-07] MEDS ORDERED: dextrose 50%-water 50ml dispensing syringe IV PRN (05:00)
[2019-10-07] MEDS ORDERED: ondansetron/PF 4mg/2ml inj IV PRN (05:00)
[2019-10-07] MEDS ORDERED: potassium CL 10mEq/100ml bag 100 ML IV PRN ×2 (05:00)
[2019-10-07] MEDS ORDERED: thiamine 100mg/ml 2ml inj. IV ONE (05:00)
[2019-10-07] MEDS ORDERED: ondansetron/PF 4mg/2ml inj IV ONE (05:00)
[2019-10-07] MEDS ORDERED: acetaminophen 325mg tablet PO PRN ×2 (05:00)
[2019-10-07] MEDS ORDERED: potassium Cl 20 mEq SR tablet PO PRN (05:00)
[2019-10-07] MEDS ORDERED: LORazepam 2 mg/ml vial IV PRN (05:00)
[2019-10-07 06:00] VITALS: BP 138/73
--- NOTE | 2019-10-07 06:00 | NUR ---
Patient in room ORTH[facility] 4020. I have received report from PATY Alamo and had the opportunity to ask questions and assume patient care.
[2019-10-07 07:17] LABS: MAGNESIUM 1.9 MG/DL (1.5-2.4)
[2019-10-07] MEDS: potassium Cl 20 mEq SR tablet PO PRN ×2 (08:35→13:28)
[2019-10-07] MEDS: thiamine 100mg tablet PO SCH (08:35)
[2019-10-07] MEDS: K and/or MAG REPLACEMENT MC SCH ×2 (08:36→20:55)
[2019-10-07] MEDS: enoxaparin 40mg/0.4ml syringe SUBCUT SCH (08:36)
[2019-10-07] MEDS: piperacillin/tazo 4.5gm/100ml 100 ML IV SCH ×2 (08:38→16:18)
[2019-10-07] MEDS: dextrose 5%-1/2 normal saline 1,000 ML IV SCH (09:32)
[2019-10-07 10:00] VITALS: BP 87/54
--- NOTE | 2019-10-07 12:23 | NUR ---
Malnutrition/TF consult: Pt admit with aspiration PNA and EtOH intoxication. Pt with hx esophageal CA s/p chemo/radiation. Per H&P pt states he does not take anything PO at this time and only uses his G-tube, however pt continues with heavy EtOH use. Ethyl alcohol level 0.344 on admit. Pt previously admitted in May of this year and was only able to tolerate a full liquid diet at that time, however did not have a PEG during that admission. TF recommendations below are calculated to meet 100% of patient's estimated nutrient needs using IBW. In regards to malnutrition consult, pt with low BMI of 12.0 using wt of 38 kg, however unknown how current documented wt was obtained. D/w RN who reports that pt likely weighs more than that and they will try to obtain a scaled weight. Per wt hx, pt stable around 66-67 kg resulting in an appropriate BMI of 21. Pt just admitted, pending physical assessment for muscle strength activity and alertness, however pt with ALOC on admit. Per H&P pt with no edema however is cachectic. 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 D/t cachexia, pt meets criteria for severe malnutrition, MD notified. Malnutrition education with ONS recommendations not appropriate at this time given pt will be receiving nutrition via PEG. Will continue to follow closely. Recommendations: 1) Continuous TF via PEG using Jevity 1.2 with goal rate of 70 mL/hr to provide: 1680 mL total volume/day, 2016 kcal, 93 g protein, and 1356 mL water 2) No water flush at this time given low serum Na; 100 mL water flush Q4H will meet hydration needs once serum Na WNL 3) Prealbumin q / 4) Daily weights 5) Monitor for s/s refeeding syndrome 6) Scaled wt to determine potential wt changes 7) Continue routine Thiamine, consider the addition of Folic acid and MVI for w/d protocol 8) BSS with ST if planning on advancing PO diet Addendum: 10/07/19 at [address] Amended: Links added.
[2019-10-07] MEDS: POTASSIUM BICARB 20meq eff tab 20 MEQ TABLET.EFF PO PRN ×2 (14:40→20:54)
[2019-10-07 18:00] VITALS: BP 75/49
--- NOTE | 2019-10-07 18:00 | NUR ---
Problems reprioritized. Patient report given, questions answered & plan of care reviewed with PATY Alamo.
[2019-10-07 19:30] LABS: MAGNESIUM 1.4 MG/DL (1.5-2.4); POTASSIUM 3.3 MMOL/L (3.5-5.1)
--- NOTE | 2019-10-07 20:26 | NUR ---
pt has an Aunt Yumiko [phone] home [phone] if needed.
[2019-10-07] MEDS: HYDROcodone/acetaminophen 5mg/325mg tablet PO PRN (21:02)
[2019-10-07 22:00] VITALS: BP 79/56
[2019-10-07 23:00] VITALS: BP 77/46
--- NOTE | 2019-10-07 23:00 | NUR ---
Called MD to inform of low BP, even after 250mL bolus. New order to bolus 1Liter more.
[2019-10-07] MEDS ORDERED: normal saline 1000ml 1,000 ML IV ONE (23:20)
[2019-10-07 23:53] VITALS: BP 82/52
[2019-10-08] VITALS (10 sets, daily range): BP systolic 83–122; BP diastolic 50–77
--- NOTE | 2019-10-08 | NUR ---
150 residual. TF decreased back to 20mL/hr
[2019-10-08] MEDS: piperacillin/tazo 4.5gm/100ml 100 ML IV SCH ×3 (00:12→16:47)
[2019-10-08] MEDS: mag hydrox/Alum hydrox/simeth 30ml oral suspension PO PRN ×2 (00:24→07:47)
[2019-10-08] MEDS: POTASSIUM BICARB 20meq eff tab 20 MEQ TABLET.EFF PO PRN (00:27)
[2019-10-08] MEDS: dextrose 5%-1/2 normal saline 1,000 ML IV SCH ×2 (02:16→06:42)
--- NOTE | 2019-10-08 06:29 | NUR ---
Problems reprioritized. Patient report given, questions answered & plan of care reviewed with PATY Tong.
--- NOTE | 2019-10-08 06:35 | NUR ---
Patient in room ORTHO 4020. I have received report from Janice Fu RN and had the opportunity to ask questions and assume patient care.
[2019-10-08 06:42] LABS: RED BLOOD COUNT 2.33 X10'6 (4.70-6.10)
[2019-10-08 06:45] LABS: HEMOGLOBIN 7.6 g/dl (14.0-17.9); MEAN CORPUSCULAR HEMOGLOBIN 32.7 PG (27.0-31.0); MEAN CORPUSCULAR HGB CONC 35.2 g/dL (33.0-36.5); MEAN CORPUSCULAR VOLUME 93.1 FL (78-98); MEAN PLATELET VOLUME 6.8 FL (7.4-10.4); PLATELET COUNT 304 X10'3 (140-440); RED CELL DISTRIBUTION WIDTH 24.3 % (11.5-14.5); WHITE BLOOD COUNT 4.6 X10'3 (4.5-11.0)
[2019-10-08 06:48] LABS: HEMATOCRIT 21.7 % (42.0-52.0)
--- NOTE | 2019-10-08 06:49 | NUR ---
Patient in room ORTHO 4020. I have received report from Janice NEWMAN and had the opportunity to ask questions and assume patient care.
[2019-10-08 06:58] LABS: ALANINE AMINOTRANSFERASE 8 U/L (12-78); ALBUMIN 1.3 G/DL (3.4-5.0); ALBUMIN/GLOBULIN RATIO 0.4 (1.1-1.5); ALKALINE PHOSPHATASE 61 IU/L (46-116); ANION GAP 6 (8-16); ASPARTATE AMINO TRANSFERASE 12 U/L (10-37); BILIRUBIN,TOTAL 0.3 MG/DL (0.1-1.0); BLOOD UREA NITROGEN 9 MG/DL (7-18); BUN/CREATININE RATIO 15.8 (5.4-32.0); CALCIUM 7.4 MG/DL (8.5-10.1); CHLORIDE 102 MMOL/L (99-107); CREATININE 0.57 MG/DL (0.60-1.10); GLUCOSE 105 MG/DL (70-104); POTASSIUM 4.1 MMOL/L (3.5-5.1); SODIUM 138 MMOL/L (135-145); TOTAL CARBON DIOXIDE 29.7 MMOL/L (24-32); TOTAL PROTEIN 4.9 G/DL (6.4-8.2); eGFR > 90 ML/MIN
--- NOTE | 2019-10-08 06:59 | NUR ---
PAGER ID: [phone] MESSAGE: Dr. Johnson, patient Atul Gonzales had a critical hematocrit of 21.7, his Hemoglobin is 7.6, his BP most current is 88/50. thanks, Alycia [phone] ortho
[2019-10-08] MEDS: enoxaparin 40mg/0.4ml syringe SUBCUT SCH (07:38)
[2019-10-08] MEDS: thiamine 100mg tablet PO SCH (07:38)
[2019-10-08] MEDS: HYDROcodone/acetaminophen 5mg/325mg tablet PO PRN ×2 (07:47→19:55)
[2019-10-08 07:59] LABS: TOTAL CELLS COUNTED 100
[2019-10-08 08:00] LABS: ANISOCYTOSIS 3+; PLATELET ESTIMATE NORMAL
[2019-10-08] MEDS: K and/or MAG REPLACEMENT MC SCH ×2 (08:00→20:00)
[2019-10-08 08:01] LABS: TOXIC GRANULATION 3+
[2019-10-08 10:17] LABS: MAGNESIUM 1.4 MG/DL (1.5-2.4)
[2019-10-08] MEDS ORDERED: pantoprazole 40 MG vial IV ONE (12:15)
[2019-10-08] MEDS ORDERED: magnesium 2GM in 50ml NS 50 ML IV PRN (12:35)
[2019-10-08] MEDS: magnesium 4gm in 100ml NS 100 ML IV PRN ×2 (13:33→21:47)
[2019-10-08 13:48] LABS: OCCULT BLOOD STOOL NEGATIVE (Neg)
--- NOTE | 2019-10-08 14:21 | NUR ---
Nutrition consult for tube feeding, patient already receiving continuous tube feedings with Jevity 1.2 at currently at 40 ml/hr, discussed with bedside RN today that goal is 70 ml/hr. Sodium today is 138, improved from low sodium yesterday. Pt admit with aspiration PNA and EtOH intoxication. Pt with hx esophageal CA s/p chemo/radiation. Per H&P pt states he does not take anything PO at this time and only uses his G-tube, however pt continues with heavy EtOH use. Ethyl alcohol level 0.344 on admit. Pt previously admitted in May of this year and was only able to tolerate a full liquid diet at that time, however did not have a PEG during that admission. TF recommendations below are calculated to meet 100% of patient's estimated nutrient needs using IBW. Pt with low BMI of 12.5 with standing scale weight os 39.5 kg. Cachetic appearance with mild muscle weakness. 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 D/t cachexia, pt meets criteria for severe malnutrition, MD notified. Malnutrition education with ONS recommendations not appropriate at this time given pt will be receiving nutrition via PEG. Will continue to follow closely. Recommendations: 1) Continuous TF via PEG using Jevity 1.2 with goal rate of 70 mL/hr to provide: 1680 mL total volume/day, 2016 kcal, 93 g protein, and 1356 mL water 2) Additional water flush 100 mL q 4 hours to meet hydration needs 3) Prealbumin q M/ 4) Daily weights 5) Monitor for s/s refeeding syndrome 6) Continue routine Thiamine, consider the addition of Folic acid and MVI for w/d protocol 7) BSS with ST if planning on advancing PO diet Addendum: 10/08/19 at [address] Amended: Links added.
[2019-10-08] MEDS ORDERED: pantoprazole 40MG/NS 100ML BAG 100 ML IV SCH (16:00)
--- NOTE | 2019-10-08 18:00 | NUR ---
Patient in room ORTHO 4020. I have received report from Alycia BANKS and had the opportunity to ask questions and assume patient care. Addendum: 10/08/19 at 1850 by Lilly Wooten RN Amended: Links added.
--- NOTE | 2019-10-08 18:37 | NUR ---
Problems reprioritized. Patient report given, questions answered & plan of care reviewed with Janice NEWMAN.
[2019-10-08 19:14] LABS: HEMATOCRIT 25.9 % (42.0-52.0); MEAN CORPUSCULAR HGB CONC 34.8 g/dL (33.0-36.5); MEAN CORPUSCULAR VOLUME 91.8 FL (78-98); MEAN PLATELET VOLUME 7.2 FL (7.4-10.4); PLATELET COUNT 280 X10'3 (140-440); RED BLOOD COUNT 2.82 X10'6 (4.70-6.10); WHITE BLOOD COUNT 5.5 X10'3 (4.5-11.0)
--- NOTE | 2019-10-08 19:28 | NUR ---
Spoke with Dr. Johnson. re: patient's nutrition and black colored stools. A second guiac was obtained. Patient states that while caring for himself, he puts ensure and gatorade down PEG for his nutrition. stated that we can do a 1 time dose of Imodium to see if we can slow down the amount of stools. Also, stated to stop fingersticks.
[2019-10-08] MEDS ORDERED: loperamide 2mg capsule PO ONE (19:30)
[2019-10-09] MEDS: HYDROcodone/acetaminophen 5mg/325mg tablet PO PRN ×3 (00:04→08:17)
[2019-10-09] MEDS: piperacillin/tazo 4.5gm/100ml 100 ML IV SCH ×2 (00:05→08:17)
[2019-10-09] MEDS: dextrose 5%-1/2 normal saline 1,000 ML IV SCH (02:15)
[2019-10-09] MEDS ORDERED: LORazepam 2 mg/ml vial IV PRN (05:00)
[2019-10-09] MEDS ORDERED: LORazepam 1 MG tablet PO PRN (05:00)
[2019-10-09 06:10] VITALS: BP 85/48
[2019-10-09 06:27] LABS: BASOPHILS % (AUTO) 0.1 % (0-1); EOSINOPHILS % (AUTO) 0.1 % (0-6); HEMATOCRIT 24.8 % (42.0-52.0); HEMOGLOBIN 8.7 g/dl (14.0-17.9); LYMPHOCYTES # (AUTO) 0.1 X10'3 (1.1-4.8); LYMPHOCYTES % (AUTO) 1.1 % (21-51); MEAN CORPUSCULAR HEMOGLOBIN 32.2 PG (27.0-31.0); MEAN CORPUSCULAR HGB CONC 35.1 g/dL (33.0-36.5); MEAN CORPUSCULAR VOLUME 91.5 FL (78-98); MEAN PLATELET VOLUME 7.2 FL (7.4-10.4); MONOCYTES # (AUTO) 0.2 X10'3 (0-0.9); MONOCYTES % (AUTO) 3.1 % (2-12); NEUTROPHILS # (AUTO) 5.1 X10'3 (1.8-7.7); NEUTROPHILS % (AUTO) 95.6 % (42-75); PLATELET COUNT 230 X10'3 (140-440); RED BLOOD COUNT 2.71 X10'6 (4.70-6.10); RED CELL DISTRIBUTION WIDTH 22.9 % (11.5-14.5); WHITE BLOOD COUNT 5.4 X10'3 (4.5-11.0)
--- NOTE | 2019-10-09 06:35 | NUR ---
Problems reprioritized. Patient report given, questions answered & plan of care reviewed with Alycia Champion RN. Addendum: 10/09/19 at 0636 by Lilly Wooten RN Amended: Links added.
[2019-10-09 06:37] LABS: ALANINE AMINOTRANSFERASE 7 U/L (12-78); ALBUMIN 1.3 G/DL (3.4-5.0); ALBUMIN/GLOBULIN RATIO 0.4 (1.1-1.5); ALKALINE PHOSPHATASE 67 IU/L (46-116); ANION GAP 3 (8-16); ASPARTATE AMINO TRANSFERASE 9 U/L (10-37); BILIRUBIN,TOTAL 0.3 MG/DL (0.1-1.0); BLOOD UREA NITROGEN 12 MG/DL (7-18); BUN/CREATININE RATIO 23.1 (5.4-32.0); CALCIUM 7.6 MG/DL (8.5-10.1); CHLORIDE 101 MMOL/L (99-107); CREATININE 0.52 MG/DL (0.60-1.10); GLUCOSE 95 MG/DL (70-104); POTASSIUM 3.6 MMOL/L (3.5-5.1); SODIUM 135 MMOL/L (135-145); TOTAL CARBON DIOXIDE 31.3 MMOL/L (24-32); TOTAL PROTEIN 4.6 G/DL (6.4-8.2); eGFR > 90 ML/MIN
--- NOTE | 2019-10-09 06:43 | NUR ---
Patient in room ORTHO 4020. I have received report from Ekta Fu and had the opportunity to ask questions and assume patient care.
[2019-10-09] MEDS ORDERED: pantoprazole 40 MG vial IV SCH (08:00)
[2019-10-09] MEDS: K and/or MAG REPLACEMENT MC SCH (08:00)
[2019-10-09] MEDS: thiamine 100mg tablet PO SCH (08:29)
[2019-10-09] MEDS ORDERED: loperamide 2mg capsule PO PRN (09:20)
[2019-10-09 09:24] LABS: MAGNESIUM 2.2 MG/DL (1.5-2.4)
[2019-10-09 09:35] LABS: ANISOCYTOSIS 3+; HYPOCHROMASIA 1+; PLATELET ESTIMATE NORMAL; POLYCHROMASIA 1+; TOTAL CELLS COUNTED 100; TOXIC GRANULATION 3+; TOXIC VACUOLATION 1+
[2019-10-09 10:00] VITALS: BP 84/56
[2019-10-09] MEDS ORDERED: AMOX600S48 PO (11:03)
--- NOTE | 2019-10-09 11:34 | NUR ---
TF consult: Pt needs to be switched to bolus feeds for discharge plan. TF recommendations below. Pt currently tolerating TF at goal rate with PRISCILLA VARMA. Will continue to follow closely. Recommendations: 1) Continuous TF via PEG using Jevity 1.2 with goal rate of 70 mL/hr to provide: 1680 mL total volume/day, 2016 kcal, 93 g protein, and 1356 mL water 2) Additional water flush 100 mL q 4 hours to meet hydration needs 3) Prealbumin q / 4) Daily weights 5) Monitor for s/s refeeding syndrome 6) Continue routine Thiamine, consider the addition of Folic acid and MVI for w/d protocol 7) BSS with ST if planning on advancing PO diet 8) If switching to bolus feeds during admit, bolus feeds QID using Jevity 1.2 to begin at 150 mL bolus and advance by 50 mL/bolus as tolerated to goal rate of 420 mL/bolus HOME BOLUS PEG RECS: 1) Bolus feeds QID using Jevity 1.5 or equivalent to begin at 150 mL bolus and advance by 50 mL/bolus as tolerated to goal of 365 mL/bolus QID 2) 80 mL water flush before and after each bolus feed 3) Additional 440 mL water/day 4) Outpatient RD to titrate to goal rate and make adjustments as needed based on patient's estimated nutrient needs Addendum: 10/09/19 at [address] Amended: Links added.
--- NOTE | 2019-10-09 12:19 | NUR ---
holding tube feed right now because patient residual is 430 and patient is continuously coughing stuff up. Addendum: 10/09/19 at 1400 by Renee Valdovinos RN resuming tube feed at 70, residual is 160, patient in no distress
--- NOTE | 2019-10-09 15:44 | NUR ---
Patient discharged at this time. Patient taught about antibiotic treatment for his pneumonia. [facility] [address] [facility] feeds with [facility]. I called a cab for the patient to go to these places and the rescue mission for the final destination. Patient was provided with clothes and shoes and had his belongings.
[2019-10-11] MEDS ORDERED: LORazepam 1 MG tablet PO PRN (05:00)
[2019-10-11] MEDS ORDERED: LORazepam 2 mg/ml vial IV PRN (05:00)
== END 2019-10-09 15:35 | disposition home or self-care (01) | DRG 137 ==
LOC: ER 23:39 → ED HOLD 10-07 04:58 → CMPBEDREQ 10-07 05:49 → ORTHO 4S 10-07 05:55
PROVIDERS: ADMIT Hospitalist; ATTEND Hospitalist
PROC: 30233N1 Transfusion of Nonautologous Red Blood Cells into Peripheral Vein, Percutaneous Approach (ICD-10-PCS; principal; 2019-10-08)
DX: J69.0 Pneumonitis due to inhalation of food and vomit (principal); E43 Unspecified severe protein-calorie malnutrition; G93.41 Metabolic encephalopathy; E83.42 Hypomagnesemia; D64.9 Anemia, unspecified; E83.51 Hypocalcemia; E87.6 Hypokalemia; E87.1 Hypo-osmolality and hyponatremia; F10.129 Alcohol abuse with intoxication, unspecified; I10 Essential (primary) hypertension; Y90.9 Presence of alcohol in blood, level not specified; Z85.01 Personal history of malignant neoplasm of esophagus; Z87.891 Personal history of nicotine dependence; Z68.1 Body mass index [BMI] 19.9 or less, adult; Z59.0 Homelessness; Z85.028 Personal history of other malignant neoplasm of stomach; Z93.1 Gastrostomy status
CPT/HCPCS: 36415; 70450; 71045; 71250; 72125; 80053; 80305; 80320; 81003; 82272; 82948; 83605; 83735; 84132; 84134; 84145; 84439; 84484; 85025; 85027; 85610; 86885; 86900; 86901; 86920; 87040; 87081; 93005; 96365; 99285; C9113; G0378; J0456; J0696; J1650; J2060; J2405; J2543; J3370; J3475; J3480; J7030; P9016

== ENCOUNTER 2019-10-13 07:50 | Day surgery (SDC) | payer MEDICAID ==
[~2019-10-13] VITALS: Ht 175.3 cm; Wt 45.5 kg
[2019-10-13 07:45] VITALS: BP 101/57
[~2019-10-13 07:50] MED LIST changes: +AMOX600S48 PO; -FLUC100T40 PO; -PANT-47 PO
[2019-10-13] MEDS ORDERED: heparin sodium, porcine/PF 100unit/ml 5ML syringe IV SCH (08:20)
[2019-10-13] MEDS ORDERED: PANT-47 PO (08:38)
[2019-10-13] MEDS ORDERED: HYDR-4353 PO (08:39)
[2019-10-13] MEDS ORDERED: AMOX600S4 PO (08:41)
[2019-10-13] MEDS ORDERED: fentaNYL/PF 50MCG/1 ML 2ML syringe ONE (08:50)
[2019-10-13] MEDS ORDERED: MIDAZolam 5mg/5ml vial ONE (08:50)
[2019-10-13] MEDS ORDERED: LIDOcaine Viscous 15ml cup ONE (08:50)
[2019-10-13 09:43] VITALS: BP 107/50
[2019-10-13 09:53] VITALS: BP 96/71
[2019-10-13 10:03] VITALS: BP 91/59
[2019-10-13 10:13] VITALS: BP 92/64
== END 2019-10-13 10:54 | disposition home or self-care (01) ==
LOC: GI LAB 07:50
PROVIDERS: ATTEND Internal Medicine Gastroenterology
DX: K94.23 Gastrostomy malfunction (principal)
CPT/HCPCS: 43762; 99152; J1642; J2250; J3010; J7040; A4620; A6449; B4087